=== PATIENT | female | born 1970 ===

== ENCOUNTER 2021-07-22 15:02 | Outpatient (CLI) | payer BC ==
[2021-07-22 16:12] LABS: ALT (SGPT) 20 U/L (8-55); AST (SGOT) 21 U/L (5-34); Albumin 4.5 g/dL (3.5-5.0); Alkaline Phosphatase 56 U/L (40-110); Anion Gap 10 mmol/L (10-20); BUN (Urea Nitrogen) 10 mg/dL (7.0-18.7); Bilirubin, Total 0.5 mg/dL (0.2-1.2); Calc. Creatinine Clearance 0 mL/min (70-130); Calcium 9.4 mg/dL (7.8-10.44); Carbon Dioxide 28 mmol/L (22-29); Chloride 104 mmol/L (98-107); Globulin 2.7 g/dL (2.4-3.5); Glucose 100 mg/dL (70-105); Protein, Total 7.2 g/dL (6.0-8.3); Sodium 138 mmol/L (136-145)
[2021-07-22 16:24] LABS: #Eosinphils 0.3 10x3/uL (0.0-0.5); #Monocytes 0.8 10x3/uL (0.0-1.1); #Neutrophils 6.3 10x3/uL (1.5-8.4); %Basophils 0.4 % (0.0-2.0); %Eosinophils 3.3 % (0.0-6.0); %Lymphocytes 25.4 % (18.0-47.0); %Monocytes 7.9 % (0.0-10.0); %Neutrophils 62.6 % (40.0-75.0); Hemoglobin 14.9 g/dL (12.0-15.5); Mean Corpuscular HGB CONC 32.2 g/dL (32.0-36.0); Mean Corpuscular Volume 99.6 fl (81.6-98.3); Mean Platelet Volume 8.7 fl (7.4-10.4); Platelet Count 333 10x3/uL (150-450); RBC Distribution Width 12.6 % (11.5-14.5); Red Blood Cell (RBC) Count 4.65 10x6/uL (3.90-5.03); White Blood Cell (WBC) Count 10.1 10x3/uL (3.5-10.5)
[2021-07-23 12:10] LABS: SARS-CoV-2 PCR by NAA Not Detected (NotDetected)
== END 2021-07-22 15:03 | disposition home or self-care (01) ==
LOC: LABBT 15:02
PROVIDERS: ATTEND Specialist
DX: Z01.818 Encounter for other preprocedural examination (principal); Z20.822 Contact with and (suspected) exposure to COVID-19
CPT/HCPCS: 71046; 80053; 85025; 93005; 93010; U0003; U0005

== ENCOUNTER 2021-07-27 07:49 | Day surgery (SDC) | payer BC ==
[2021-07-20 13:26] VITALS: BMI 31.4
[2021-07-27] MEDS ORDERED: EPINEPHrine 1 MG/ML AMP ONE (08:06)
[2021-07-27] MEDS ORDERED: Bupivacaine PF 0.5% 30 ML VIAL ONE (08:06)
[2021-07-27] MEDS ORDERED: Gabapentin 300 MG CAP ONE (08:10)
[2021-07-27] MEDS ORDERED: Acetaminophen 500 MG TAB ONE (08:10)
[2021-07-27] MEDS ORDERED: Scopolamine 1.5 mg/72 hour Patch ONE (08:10)
[2021-07-27] MEDS ORDERED: Ketorolac Tromethamine 30 MG/ML VIAL ONE (08:11)
[2021-07-27] MEDS ORDERED: Lidocaine 1% MPF 2 ML VIAL ONE (08:34)
[2021-07-27] MEDS ORDERED: HYDROmorphone 0.5 MG/0.5 ML SYRINGE ONE (09:24)
[2021-07-27] MEDS ORDERED: Midazolam HCl 2 mg/2 ml Vial ONE ×2 (09:24→09:28)
[2021-07-27] MEDS ORDERED: Fentanyl 100 MCG/2 ML VIAL ONE ×3 (09:24→11:11)
[2021-07-27] MEDS ORDERED: ceFAZolin 2 GM/Dextrose 50 ML IVPB ONE (09:28)
[2021-07-27] MEDS ORDERED: Lidocaine 1% PF 5 ML VIAL ONE (09:37)
[2021-07-27] MEDS ORDERED: Rocuronium Bromide 10 MG/ML (10ML VIAL) ONE (09:37)
[2021-07-27] MEDS ORDERED: PROPOFOL 200 MG/20 ML VIAL ONE (09:37)
[2021-07-27] MEDS ORDERED: Ondansetron PF 4 MG/2 ML Vial ONE ×2 (09:37→10:52)
== END 2021-07-27 13:19 | disposition home or self-care (01) ==
LOC: SDC 07:49
PROVIDERS: ATTEND Specialist
PROC: 0FT44ZZ Resection of Gallbladder, Percutaneous Endoscopic Approach (ICD-10-PCS; principal; 2021-07-27)
DX: K80.10 Calculus of gallbladder with chronic cholecystitis without obstruction (principal); I10 Essential (primary) hypertension; F17.290 Nicotine dependence, other tobacco product, uncomplicated; Z79.899 Other long term (current) drug therapy; Z88.8 Allergy status to other drugs, medicaments and biological substances; Z98.1 Arthrodesis status
CPT/HCPCS: 88304; C1713; J0171; J0690; J1170; J1885; J2250; J2405; J2704; J3010; S0020